=== PATIENT | male | born 2005 | race Caucasian/White ===

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

== ENCOUNTER 2023-01-06 11:12 | Emergency (ER) | payer OTHER ==
[~2023-01-06] VITALS: Ht 172.7 cm; Wt 70.3 kg
[2023-01-06 11:31] VITALS: BP 134/86
== END 2023-01-06 14:20 | disposition home or self-care (01) ==
LOC: ER 11:12
DX: Z20.828 Contact with and (suspected) exposure to other viral communicable diseases (principal)
CPT/HCPCS: 36415; 86308